=== PATIENT | female | born 1945 | race Caucasian/White ===

== ENCOUNTER 2017-02-26 09:11 | Inpatient (IN) | payer OTHER ==
[~2017-02-26] VITALS: Ht 157.5 cm; Wt 128.4 kg
--- NOTE | ~2017-02-26 | HC ---
[facility] [place] [address] CONSULTATION Name: CHERY KHAN Room #: 212-P [facility] IN M.R.#: [id number] Admission: 02/26/17 Attend Phys: Hailee Sheridan Discharge: Date of : 41 Report #: [id number] THIS REPORT FOR: //name// CC: Michael Sheridan DATE OF SERVICE: 02/26/2017 INDICATION: Chest pains. HISTORY OF PRESENT ILLNESS: This is a 71-year-old female presenting with an episode of chest pain that woke her up this morning around 4:30 a.m. The pain was in the substernal area, radiating down the left arm. She felt diaphoretic, dizziness and shortness of air. She was given 3 nitroglycerins by EMS with resolution of the chest pain. There is no history of fever, chills, PND or diarrhea. She uses oxygen at night for COPD. PAST MEDICAL HISTORY: Remote history of PR. History of paroxysmal AFib status post cardioversion in 11/2016, she stopped taking Xarelto after a week. According to the patient, she had problems with this medication. History of COPD, on 2 liters of oxygen at night, positive tobacco use, history of CHF, hypertension, obesity, edema. ALLERGIES: PENICILLINS, THEOPHYLLINE, XANTHENES. MEDICATIONS: Please see MAR for full listing. SOCIAL HISTORY: Positive tobacco use. FAMILY HISTORY: Negative for premature CAD. REVIEW OF SYSTEMS: A full 10-point review of systems performed. Only the pertinent positives and negatives are described in HPI. PHYSICAL EXAMINATION: VITAL SIGNS: Blood pressure is 120/70, heart rate is 60 beats per minute. GENERAL APPEARANCE: An overweight female in no acute respiratory distress. HEAD AND EYES: Normocephalic. Sclerae are anicteric. ENT: Oral mucosa moist. NECK: Supple. LUNGS: Diminished breath sounds at the bases. CARDIAC: S1, S2 positive. Distant heart sounds. ABDOMEN: Soft, protuberant, nontender. EXTREMITIES: No cyanosis, positive edema. ELECTROCARDIOGRAM: ECG reveals sinus rhythm, nonspecific ST segment [facility] [address] [place] [address] CONSULTATION Name: CHERY KHAN Room #: 212-P [facility] IN M.R.#: [id number] Admission: 02/26/17 Attend Phys: Hailee Sheridan Discharge: Date of : 41 Report #: [id number] abnormalities. LABORATORY VALUES: White count is 10.6, hemoglobin is 14.1. Troponin is 0.47. Creatinine is 1.0. ASSESSMENT AND PLAN: 1. Non-ST elevation myocardial infarction, will need a cardiac catheterization. Continue with aspirin and start heparin protocol. I did discuss with her proceeding with an invasive approach, which she is agreeable with. There is some concern of heart failure and fluid overload, will diurese initially. 2. Congestive heart failure/edema, continue with Lasix, check echocardiogram. 3. Chronic obstructive pulmonary disease, continue with oxygen. 4. History of paroxysmal atrial fibrillation, remains in sinus rhythm. She stopped taking Xarelto on her own. 5. Hypertension, continue with medications. 6. Hypercholesterolemia, start statin medication. <ELECTRONICALLY SIGNED> By: Polo Williamson MD 02/26/17 2248 1119 [id number] Polo Williamson MD /nt
--- NOTE | ~2017-02-26 | EKG ---
[place] [address] [employer] [place] [address] ELECTROCARDIOGRAM REPORT Name: CHERY KHAN Room #: 212- ADM IN M.R.#: [id number] Admission: 02/26/17 Attend Phys: Hailee Sheridan Discharge: Date of : 41 Report #: [id number] THIS REPORT FOR: //name// [facility] Test Date: 2017-02-28 Test Time: 16:20:07 Pat Name: CHERY KHAN Department: Room: 212 Gender: F Assistant In Nursing: Claudia FITZPATRICK : 1945 Requested By: Polo Williamson Order Number: [id number] MD: Johny Chen Measurements Intervals [place] Rate: 60 P: 65 TX: 190 QRS: 9 QRSD: 105 T: -59 QT: 482 QTc: 482 Interpretive Statements Sinus rhythm Inferior infarct, age indeterminate Compared to ECG 02/26/2017 09:19:06 No significant change was found Electronically Signed On 02-28-2017 17:09:17 CENTRAL STATION OPERATOR by Johny Chen [email or web address] <ELECTRONICALLY SIGNED> By: Johny Chen MD, [facility] 02/28/17 1709 1620 19 Johny Chen MD, [facility] /EPI
--- NOTE | ~2017-02-26 | 2DMMODE ---
[facility] [address] [place] [address] 2 D/M-MODE ECHOCARDIOGRAM Name: CHERY KHAN Room #: 170-2 ADM IN .R.#: [id number] Admission: 02/26/17 Attend Phys: Hailee Santana Discharge: Date of : 41 Date of Service: 02/26/17 1413 Report #: [id number] THIS REPORT FOR: //name// APPROVED REPORT Study performed: 02/26/2017 11:42:52 EXAM: Comprehensive 2D, Doppler, and color-flow Echocardiogram Patient Location: ER Room #: 2 Status: on-call BSA: 2.20 HR: 73 bpm BP: 132/64 mmHg Other Information Study Quality: Adequate Indications Congestive Heart Failure Hypertension/HDD 2D Dimensions RVDd: 42.25 mm LVEF(%): 59.74 (>50%) IVSd: 11.98 (7-11mm) LVOT Diam: 18.93 (18-24mm) LVDd: 47.36 mm PWd: 11.94 (7-11mm) Ascending Ao: 31.18 (22-36mm) LVDs: 32.31 (25-40mm) Aortic Root: 30.57 mm IVC: 17.00 mm Gamez's LVEF: 59.74 % Volumes Left Atrial Volume (Systole) Single Plane 4CH: 72.11 mL Single Plane 2CH: 67.50 mL LA ESV Index: 36.00 mL/m2 Aortic Valve AoV Peak Jose M.: 1.82 m/s AO Peak Gr.: 13.21 mmHg LVOT Max P.99 mmHg LVOT Max V: 1.00 m/s KITTY Vmax: 1.55 cm2 Mitral Valve E/A Ratio: 1.2 MV Decel. Time: 219.65 ms [facility] [employer] [place] [address] 2 D/M-MODE ECHOCARDIOGRAM Name: CHERY KHAN Room #: 170-2 ADM IN M.R.#: [id number] Admission: 02/26/17 Attend Phys: Hailee Santana Discharge: Date of : 41 Date of Service: 02/26/17 1413 Report #: [id number] MV E Max Jose M.: 0.84 m/s MV A Jose M.: 0.73 m/s MV PHT: 63.70 ms IVRT: 92.27 ms Pulmonary Valve PV Peak Jose M.: 0.73 m/s PV Peak Gr.: 2.11 mmHg Pulmonary Vein P Vein S: 0.45 m/s P Vein A: 0.27 m/s P Vein D: 0.36 m/s P Vein A Dur.: 106.1 msec P Vein S/D Ratio: 1.25 Tricuspid Valve TR Peak Jose M.: 2.77 m/s TR Peak Gr.: 30.77 mmHg PA Pressure: 36.00 mmHg Left Ventricle The left ventricle is normal size. Mild concentric left ventricular hypertrophy. The left ventricular systolic function is normal. The left ventricular ejection fraction is within the normal range. LVEF is 60-65%. Grade II - pseudonormal filling dynamics. Right Ventricle The right ventricle is normal size. The right ventricular systolic function is normal. Atria Left atrium is dilated. Right atrium is dilated. Aortic Valve The aortic valve is normal in structure. No aortic regurgitation is present. There is no aortic valvular stenosis. Mitral Valve The mitral valve is normal in structure. Mild mitral regurgitation. No evidence of mitral valve stenosis. Tricuspid Valve The tricuspid valve is normal in structure. There is mild tricuspid regurgitation. Estimated PAP 36 mmHg. There is mild pulmonary hypertension. Pulmonic Valve The pulmonary valve is normal in structure. There is no pulmonic [facility] [place] [address] 2 D/M-MODE ECHOCARDIOGRAM Name: CHERY KHAN Room #: 170-2 ADM IN ..#: [id number] Admission: 02/26/17 Attend Phys: Hailee Santana Discharge: Date of : 41 Date of Service: 02/26/17 1413 Report #: [id number] valvular regurgitation. Great Vessels The aortic root is normal in size. IVC is normal in size and collapses >50% with inspiration. Pericardium There is no pericardial effusion. <Conclusion> The left ventricle is normal size. Mild concentric left ventricular hypertrophy. The left ventricular systolic function is normal. Grade II - pseudonormal filling dynamics. The right ventricle is normal size. Left atrium is dilated. Right atrium is dilated. The aortic valve is normal in structure. Mild mitral regurgitation. There is mild tricuspid regurgitation. Estimated PAP 36 mmHg. <ELECTRONICALLY SIGNED> By: Polo Williamson MD 02/26/17 1413 141 1413 Polo Williamson MD /INF
--- NOTE | ~2017-02-26 | EKG ---
[address] [employer] [place] [address] ELECTROCARDIOGRAM REPORT Name: CHERY KHAN Room #: 212- ADM IN M.R.#: [id number] Admission: 02/26/17 Attend Phys: Hailee Sheridan Discharge: Date of : 41 Report #: [id number] THIS REPORT FOR: //name// [facility] Test Date: 2017-03-01 Test Time: 05:16:18 Pat Name: CHERY KHAN Department: Room: 212 Gender: F Librarian: damaris : 1945 Requested By: Polo Williamson Order Number: [id number] MD: Jose Guerra Measurements Intervals [place] Rate: 72 P: 71 SC: 169 QRS: 54 QRSD: 84 T: 67 QT: 423 QTc: 463 Interpretive Statements Sinus rhythm Borderline low voltage, extremity leads Compared to ECG 02/28/2017 16:20:07 Myocardial infarct finding no longer present Electronically Signed On 03-01-2017 7:48:21 CAR USHER by Jose Guerra [email or web address] <ELECTRONICALLY SIGNED> By: Jose Guerra MD 03/01/17 0748 5 5 Jose Guerra MD /HELGA
--- NOTE | ~2017-02-26 | CATHLAB ---
[facility] [address] [place] [address] INVASIVE PROCEDURE REPORT Name: BILLCHERY Room #: 212-P ADM IN ..#: [id number] Admission: 02/26/17 Attend Phys: Hailee Santana Discharge: Date of : 41 Date of Service: 02/28/17 1600 Report #: [id number] THIS REPORT FOR: //name// APPROVED REPORT Patient Details Patient Status: In-Patient Room #: The patient is a 71 year-old female Event Personnel Polo Williamson Greenhouse Worker, Anahy Albrecht, Ervin Price Penny, Wes RN Procedures Performed Art Access - R femoral artery* 80893 Initial Mod Sed Same Phys/QHP Gr5y 631389 41070 Mod Sed Same Phys/QHP Ea 780370 Left Heart Cath w/or w/o Coronaries 7258671 LHC BMS Place w/wo Plasty Single PDA 1662375 BMSSINGLE Hemostasis w/ Mynx Indication Non-STEMI , Dyspnea, Chest pain Risk Factors Chronic Lung DiseaseHypercholesterolemia, Hypertension, Tobacco History () Procedure Narrative The patient was brought urgently to the Cardiac Catheterization Laboratory and was prepped and draped in a sterile manner. The Right Groin^ was infiltrated with 1% Lidocaine subcutaneous anesthesia. A PINNACLE 4FR Sheath #[id number] sheath was inserted into the RFA^. Coronary angiography was performed using coronary diagnostic catheters. The right coronary system was accessed and visualized with a JR 4 catheter. The left coronary system was accessed and visualized with a JL 4 catheter. The left ventricle was accessed and visualized with a Pigtail catheter. Left ventricular/Aortic Valve gradient assessed via catheter pullback. Left ventriculogram was performed in [place] projection. Pre-demployment femoral angiogram was performed . Closure device was deployed with a 6 Fr Mynx. The patient tolerated the procedure well and there were no complications associated with the procedure. There was no hematoma. Intraoperative Conscious Sedation Sedation start time: 14:26 Case end Time: 15:19 [place] [id number] INVASIVE PROCEDURE REPORT Name: CHERY KHAN Room #: 212-P [facility] IN ..#: [id number] Admission: 02/26/17 Attend Phys: Hailee Santana Discharge: Date of : 41 Date of Service: 02/28/17 1600 Report #: [id number] Fentanyl 25.0 mcg Versed 1.5 mg Fluoro Time: 13.25 minutes Dose: DAP 09745.50 cGycm2 2721 mGy Contrast Type and Amount: Omnipaque 240 ml Coronary Angiography The patient's coronary anatomy is co- dominant. Diagnostic Cath Left Main patent vessel with calcifications, with no flow-limiting lesions. LAD Patent vessel, with mild disease in the mid segment, 20%. Diagonal 1 Patent vessel, with mild disease proximally. Diagonal 2 Patent vessel, with no flow-limiting lesions. Circumflex Codominant vessel, with mild disease in the proximal segment, 30%. OM1 Patent vessel, with no flow-limiting lesions. Right Coronary Mild diffuse disease in the proximal and mid segments, 20%. R PDA Severe stenosis in the proximal segment, 95%. Left Ventriculography The left ventricle is normal in size with decreased contractility. The left ventricular ejection fraction is estimated to be 45%. Left ventricular wall motion abnormalities are present. There is hypokinesis of the mid to distal inferior segment. Hemodynamics The aortic pressure is 127/60 mmHg with a mean of 87 mmHg. The left ventricular pressure is 146/15 mmHg with a mean of mmHg. The left ventricular end diastolic pressure is 33 mmHg. PCI Technique Lesion Anticoagulation was achieved with Angiomax. Patient was preloaded with Plavix. Percutaneous coronary intervention was performed on the right posterior descending artery. The lesion stenosis prior to intervention was 95% with JAVIER 3 flow. A VISTA 6FR JR 4 #[id number] Guide Catheter was used to engage the ostium. A Luge Wire .014 x 182CM #[id number] Interventional Guidewire was used to cross the lesion. BALLOON DILATION A Balloon catheter [employer] RX 2.0 x 10 #[id number] was inserted and [facility] [address] [place] [address] INVASIVE PROCEDURE REPORT Name: CHERY KHAN Room #: 212-P [facility] IN M.R.#: [id number] Admission: 02/26/17 Attend Phys: Hailee Santana Discharge: Date of : 41 Date of Service: 02/28/17 1600 Report #: [id number] inflated up to 10.00atm for 18seconds. Additional Inflation: 12.00atm for 13seconds. Additional Inflation: 8.00atm for 12seconds. STENT DEPLOYMENT A drug-elutingbare metal stent INTEGRITY RX 2.25 X 18 #[id number] was inserted and inflated up to 14.00atm for 28seconds. Final angiography reveals 0 % stenosis with JAVIER 3 flow. Conclusion 1. Successful insertion of a bare metal stent into the proximal segment of the PDA. 2. Mild disease in the mid LAD segment and proximal segment of the left circumflex artery. 3. Mild segmental LV dysfunction, EF of 45%. 4. Recommend dual antiplatelet therapy. <ELECTRONICALLY SIGNED> By: Polo Williamson MD 02/28/171599 99 99 Polo Williamson MD /INF
--- NOTE | ~2017-02-26 | EKG ---
[place] [address] [facility] [address] ELECTROCARDIOGRAM REPORT Name: BILLCHERY Room #: 170-2 ADM IN M.R.#: [id number] Admission: 02/26/17 Attend Phys: Hailee Sheridan Discharge: Date of : 41 Report #: [id number] THIS REPORT FOR: //name// [facility] ED Test Date: 2017-02-26 Test Time: 09:19:06 Pat Name: CHERY KHAN Department: Room: 170 Gender: F Senior Financial Reporting Accountant: SOM : 1945 Requested By: Yfn Knott Order Number: [id number] MD: Polo Williamson Measurements Intervals [place] Rate: 70 P: 23 FL: 175 QRS: 26 QRSD: 109 T: 75 QT: 425 QTc: 459 Interpretive Statements Sinus rhythm Low voltage, precordial leads Borderline repolarization abnormality Compared to ECG 11/11/1998 06:48:00 Low QRS voltage now present Poor R-wave progression no longer present Electronically Signed On 02-26-2017 11:26:26 STAPLE LASTER by Polo Williamson [email or web address] <ELECTRONICALLY SIGNED> By: Polo Williamson MD 02/26/17 1126 8 8 Polo Williamson MD /HELGA
[2017-02-26 09:12] VITALS: BP 132/64
[2017-02-26 09:29] LABS: ABSOLUTE NEUTROPHILS 8.3 thou/uL (1.4-8.2); BASOPHILS 0.8 % (0.0-2.0); EOSINOPHILS 2.4 % (0.0-3.0); HEMATOCRIT 41.2 % (37.0-47.0); HEMOGLOBIN 14.1 gm/dL (12.0-15.0); LYMPHOCYTES 12.6 % (24.0-44.0); MCH 30.5 pg (26.0-34.0); MCHC 34.3 g/dL (28.0-37.0); MCV 89.1 fL (80.0-100.0); MONOCYTES 5.9 % (1.0-8.0); PLATELET COUNT 208 thou/uL (150-400); POLYS 78.3 % (36.0-66.0); RBC 4.63 mil/uL (4.20-5.00); RDW 15.3 % (10.5-14.5); WBC 10.6 thou/uL (4.0-11.0)
[2017-02-26 09:36] LABS: POTASSIUM 3.5 mmol/L (3.5-5.1)
[2017-02-26 09:45] LABS: TROPONIN-I 0.47 ng/mL (<0.06)
[2017-02-26] MEDS ORDERED: KLOR-CON 1010 MEQ PO ×2 (10:20→20:36)
[2017-02-26] MEDS ORDERED: SINGULAIR 10 MG10 M1 PO (10:20)
[2017-02-26] MEDS ORDERED: NABUMETONE 750750 M1 (10:21)
[2017-02-26] MEDS ORDERED: LASIX 80 MG TAB80 MG PO (10:21)
[2017-02-26] MEDS ORDERED: WELLBUTRIN XL300 MG PO (10:22)
[2017-02-26] MEDS ORDERED: FLEXERIL PO (10:22)
[2017-02-26] MEDS ORDERED: CARDIZEM CD180 MG PO ×2 (10:22→20:37)
[2017-02-26] MEDS ORDERED: ULORIC40 MG PO ×2 (10:23→20:34)
[2017-02-26] MEDS ORDERED: SPIRIVA INH (10:23)
[2017-02-26] MEDS ORDERED: ADVAIR HFA 230M12 GM INH (10:23)
[2017-02-26] MEDS ORDERED: LEVALBUTER1.25 MG/0. INH (10:24)
[2017-02-26] MEDS ORDERED: FISH OIL 1,001000 M2 PO (10:25)
[2017-02-26] MEDS ORDERED: ADULT ASPIRIN R81 MG PO (10:25)
[2017-02-26 11:51] LABS: HEMATOCRIT 42.9 % (37.0-47.0); HEMOGLOBIN 14.6 gm/dL (12.0-15.0); MCH 30.6 pg (26.0-34.0); MCHC 34.1 g/dL (28.0-37.0); MCV 89.5 fL (80.0-100.0); RBC 4.79 mil/uL (4.20-5.00); RDW 15.2 % (10.5-14.5); WBC 11.4 thou/uL (4.0-11.0)
[2017-02-26 14:03] VITALS: BP 132/64
[2017-02-26 15:00] VITALS: BP 148/72
[2017-02-26 15:03] VITALS: BP 137/84
[2017-02-26 20:14] VITALS: BP 148/69
[2017-02-26 23:55] VITALS: BP 134/69
[2017-02-27 05:21] VITALS: BP 124/56
[2017-02-27 06:27] LABS: HEMATOCRIT 38.9 % (37.0-47.0); MCHC 33.5 g/dL (28.0-37.0); MCV 89.6 fL (80.0-100.0); RBC 4.34 mil/uL (4.20-5.00); RDW 15.5 % (10.5-14.5); WBC 9.1 thou/uL (4.0-11.0)
[2017-02-27 06:38] LABS: CREATININE 0.9 mg/dL (0.6-1.0); POTASSIUM 3.1 mmol/L (3.5-5.1)
[2017-02-27 07:10] VITALS: BP 139/75
[2017-02-27 11:30] VITALS: BP 114/58
[2017-02-27 20:00] VITALS: BP 114/61
[2017-02-28] VITALS (15 sets, daily range): BP systolic 97–137; BP diastolic 44–71
[2017-02-28 06:32] LABS: CALCIUM 8.5 mg/dL (8.5-10.1); CREATININE 0.9 mg/dL (0.6-1.0); POTASSIUM 3.4 mmol/L (3.5-5.1)
[2017-03-01 03:41] VITALS: BP 105/44
[2017-03-01 07:35] VITALS: BP 121/68
[2017-03-01 08:14] LABS: HEMATOCRIT 38.2 % (37.0-47.0); HEMOGLOBIN 12.8 gm/dL (12.0-15.0); MCH 30.2 pg (26.0-34.0); MCHC 33.6 g/dL (28.0-37.0); MCV 90.1 fL (80.0-100.0); RBC 4.24 mil/uL (4.20-5.00); RDW 15.3 % (10.5-14.5); WBC 9.1 thou/uL (4.0-11.0)
[2017-03-01 08:33] LABS: CALCIUM 8.9 mg/dL (8.5-10.1); CREATININE 0.9 mg/dL (0.6-1.0); POTASSIUM 3.9 mmol/L (3.5-5.1)
[2017-03-01 08:34] LABS: TROPONIN-I 1.45 ng/mL (<0.06)
[2017-03-01] MEDS ORDERED: CLOPIDOGREL75 MG PO (09:20)
[2017-03-01] MEDS ORDERED: ATORVASTATIN CA40 MG PO (09:20)
[2017-03-01] MEDS ORDERED: TOPROL XL25 MG PO (09:21)
[2017-03-01 10:54] VITALS: BP 121/68
[2017-03-01 11:45] VITALS: BP 99/62
== END 2017-03-01 14:57 | disposition home or self-care (01) | DRG 248 ==
LOC: ER 09:11 → EROBS 10:05 → 2N 10:05
PROVIDERS: Internal Medicine Cardiovascular Disease; Nurse Practitioner
PROC: 05HD33Z Insertion of Infusion Device into Right Cephalic Vein, Percutaneous Approach (ICD-10-PCS; principal; 2017-02-26)
PROC: 4A023N7 Measurement of Cardiac Sampling and Pressure, Left Heart, Percutaneous Approach (ICD-10-PCS; 2017-02-28)
PROC: 02703DZ Dilation of Coronary Artery, One Artery with Intraluminal Device, Percutaneous Approach (ICD-10-PCS; 2017-02-28)
PROC: B2151ZZ Fluoroscopy of Left Heart using Low Osmolar Contrast (ICD-10-PCS; 2017-02-28)
PROC: B2111ZZ Fluoroscopy of Multiple Coronary Arteries using Low Osmolar Contrast (ICD-10-PCS; 2017-02-28)
DX: I21.4 Non-ST elevation (NSTEMI) myocardial infarction (principal); I50.31 Acute diastolic (congestive) heart failure; I50.30 Unspecified diastolic (congestive) heart failure; J44.9 Chronic obstructive pulmonary disease, unspecified; I48.0 Paroxysmal atrial fibrillation; E78.00 Pure hypercholesterolemia, unspecified; I24.9 Acute ischemic heart disease, unspecified; E87.6 Hypokalemia; I11.0 Hypertensive heart disease with heart failure; Z88.0 Allergy status to penicillin; Z88.8 Allergy status to other drugs, medicaments and biological substances; I25.2 Old myocardial infarction; Z79.82 Long term (current) use of aspirin; Z79.899 Other long term (current) drug therapy
CPT/HCPCS: 10081; 27001